=== PATIENT | female | born 1950 | race Caucasian/White ===

== ENCOUNTER 2021-04-14 16:37 | Emergency (ER) | payer BC, OTHER ==
[2021-04-14] MEDS ORDERED: Sodium Chloride 0.9% 10 ML Syringe FLUSH PRN (17:35)
--- NOTE | 2021-04-14 17:54 | EDM.PDOC ---
<Jamie Banegas Jasmina - Last Filed: 04/14/21 18:54> ED HPI GENERAL MEDICAL PROBLEM - General Chief Complaint: Gastrointestinal Problem Stated Complaint: BIODUCT PLUGGED AGAIN Time Seen by Provider: 04/14/21 17:49 Source of Information: Reports: Patient History Limitations: Reports: No Limitations - History of Present Illness INITIAL COMMENTS - FREE TEXT/NARRATIVE: 70 y/o F c/o chills and dark urine. Pt is concerned her bile duct is blocked off from her stage 4 pancreatic cancer. She states symptoms are similar to her November episode where her bile duct closed off. 2 nights ago pt developed intermittent chills but no fever and this morning she noticed her urine was very dark. Her GI doctor is Silvio Mcfarland in [place]. She reports no pain. Her appertites has also been very poor the last 2 days. Denies gifford, cp, db, abd pn, drugs, etoh. Onset: Gradual Duration: Day(s): - Related Data Allergies Allergy/AdvReac Type Severity Reaction Status Date / Time Calcium Channel Blocking Allergy Other Verified 11/17/17 12:37 Agent Dilt clonidine Allergy UNKNOWN Verified 12/07/20 14:58 enalaprilat [From Vasotec] Allergy Swollen Verified 11/17/17 12:37 Tongue gluten Allergy Other Verified 11/17/17 12:37 hydralazine Allergy SWELLING Verified 12/07/20 14:58 OF FACE, THROAT, LIPS OR TONGUE/ANGIOEDEMA losartan [From Cozaar] Allergy Swollen Verified 11/17/17 12:35 Tongue beta adrenergic blockers Allergy SWELLING Uncoded 12/07/20 14:58 OF FACE, THROAT, LIPS OR TONGUE/ANGIOEDEMA Past Medical History Oncologic (Cancer) History: Reports: Pancreatic - Past Surgical History GI Surgical History: Reports: Cholecystectomy Female Surgical History: Reports: Hysterectomy Musculoskeletal Surgical History: Reports: Arthroscopic Knee, Knee Replacement Social & Family History - Tobacco Use Tobacco Use Status *Q: Never Tobacco User Second Hand Smoke Exposure: No - Recreational Drug Use Recreational Drug Use: No ED ROS GENERAL - Review of Systems Review Of Systems: Comprehensive ROS is negative, except as noted in HPI. ED EXAM, GI/ABD - Physical Exam Exam: See Below Exam Limited By: No Limitations General Appearance: Alert Nose: Normal Inspection, Normal Mucosa, No Blood Throat/Mouth: Normal Inspection, Normal Lips, Normal Teeth, Normal Gums, Normal Oropharynx, Normal Voice, No Airway Compromise Head: Atraumatic, Normocephalic Neck: Supple, Non-Tender Respiratory/Chest: No Respiratory Distress, Lungs Clear Cardiovascular: Normal Peripheral Pulses, Regular Rate, Rhythm GI/Abdominal Exam: Soft, Non-Tender (Female) Exam: Deferred Rectal (Female) Exam: Deferred Back Exam: Normal Inspection, Full Range of Motion Extremities: Normal Inspection, Normal Range of Motion, Non-Tender, Normal Capillary Refill, No Pedal Edema Neurological: Alert, Oriented Psychiatric: Normal Affect, Normal Mood Skin Exam: Warm, Dry, Intact Course - Re-Assessments/Exams Free Text/Narrative Re-Assessment/Exam: 04/14/21 18:54 Care taken over by Shobha Chavez TANK CHARGER at shift change Departure - Departure Disposition: DC/Tfer to [facility] Clinical Impression: Common bile duct obstruction, Adenocarcinoma of pancreas, stage 4 - Discharge Information Forms: ED Department Discharge, Interfacility Transfer EMTALA <Shobha Chavez - Last Filed: 04/14/21 23:07> Course - Vital Signs Last Recorded V/S: Last Vital Signs Temp 98 F 04/14/21 17:18 Pulse 101 H 04/14/21 17:18 Resp 18 04/14/21 17:18 BP 151/109 H 04/14/21 17:18 Pulse Ox 97 04/14/21 17:18 - Orders/Labs/Meds Orders: Active Orders 24 hr Category Date Time Status Peripheral IV Care [RC] . DIRECTED Care 04/14/21 17:35 Active CULTURE URINE [RM] Stat Lab 04/14/21 18:43 Received Sodium Chloride 0.9% [Saline Flush] Med 04/14/21 17:35 Active 10 ml FLUSH ASDIRECTED PRN Peripheral IV Insertion Adult [OM.PC] Stat Oth 04/14/21 17:35 Ordered Medication Orders Sodium Chloride (Sodium Chloride 0.9% 10 Ml Syringe) 10 ml FLUSH ASDIRECTED PRN PRN Reason: Keep Vein Open Last Admin: 04/14/21 20:22 Dose: 10 ml Documented by: TAMI Labs: Laboratory Tests 04/14/21 04/14/21 04/14/21 Range/Units 17:43 17:43 18:43 WBC 10.4 H (5.0-10.0) 10^3/uL RBC 4.35 (4.2-5.4) 10^6/uL Hgb 13.0 (12.0-16.0) g/dL Hct 39.9 (37.0-47.0) % MCV 91.7 (80-100) fL MCH 29.9 (27.0-34.0) pg MCHC 32.6 L (33.0-35.0) g/dL Plt Count 177 (150-450) 10^3/uL Neut % (Auto) 79.7 H (42.2-75.2) % Lymph % (Auto) 12.2 L (20.5-50.1) % [place] % (Auto) 7.6 (2-8) % Eos % (Auto) 0.4 L (1.0-3.0) % Baso % (Auto) 0.1 (0.0-1.0) % Add Manual Diff Yes Neutrophils % (Manual) 63 (42-75) % Band Neutrophils % 17 % Lymphocytes % (Manual) 17 L (20-50) % Monocytes % (Manual) 2 (2-8) % Eosinophils % (Manual) 1 (1-3) % Sodium 137 (136-145) mmol/L Potassium 3.6 (3.5-5.1) mmol/L Chloride 101 (98-107) mmol/L Carbon Dioxide 25 (21-32) mmol/L Anion Gap 14.6 H (7-13) mEq/L BUN 10 (7-18) mg/dL Creatinine 0.86 (0.55-1.02) mg/dL Est Cr Clr Drug Dosing 51.06 mL/min Estimated GFR (MDRD) > 60 BUN/Creatinine Ratio 11.6 (No establ ref range) Glucose 110 H (70-99) mg/dL Calcium 8.4 L (8.5-10.1) mg/dL Total Bilirubin 4.0 H (0.2-1.0) mg/dL AST 341 H (15-37) U/L ALT 468 H (14-59) U/L Alkaline Phosphatase 484 H (46-116) U/L Total Protein 6.7 (6.4-8.2) g/dL Albumin 2.5 L (3.4-5.0) g/dL Globulin 4.2 Albumin/Globulin Ratio 0.60 Amylase 27 (25-115) U/L Lipase 55 L (73-393) U/L Urine Color Colette (YELLOW) Urine Appearance Slightly cloudy (CLEAR) Urine pH 6.0 (5.0-9.0) Ur Specific [place] 1.020 (1.005-1.030) Urine Protein Trace H (NEGATIVE) Urine Glucose (UA) Negative (NEGATIVE) Urine Ketones Negative (NEGATIVE) Urine Occult Blood Trace-intact H (NEGATIVE) Urine Nitrite Positive H (NEGATIVE) Urine Bilirubin Large H (NEGATIVE) Urine Urobilinogen 1.0 (0.2-1.0) mg/dL Ur Leukocyte Esterase Small H (NEGATIVE) Urine RBC 0-5 (0-5) /HPF Urine WBC 20-30 H (0-5/HPF) /HPF Ur Epithelial Cells Few (NOT SEEN) /HPF Urine Bacteria Many H (0-FEW/HPF) /HPF Meds: Medications Generic Name Dose Route Start Last Admin Trade Name Freq PRN Reason Stop Dose Admin Sodium Chloride 10 ml 04/14/21 17:35 04/14/21 20:22 Sodium Chloride 0.9% 10 Ml Syringe FLUSH 10 ml ASDIRECTED PRN Administration Keep Vein Open Discontinued Medications Generic Name Dose Route Start Last Admin Trade Name Freq PRN Reason Stop Dose Admin Cephalexin 500 mg 04/14/21 20:49 04/14/21 21:02 Cephalexin 500 Mg Cap PO 04/14/21 20:50 500 mg ONETIME ONE Administration Sodium Chloride 1,000 mls @ 999 mls/hr 04/14/21 20:04 04/14/21 20:23 Normal Saline IV 04/14/21 21:04 500 mls/hr .BOLUS ONE Infusion Piperacillin Sod/Tazobactam 100 mls @ 200 mls/hr 04/14/21 22:38 04/14/21 23:01 Sod 3.375 gm/ Sodium Chloride IV 04/14/21 23:07 200 mls/hr ONETIME ONE Administration Iopamidol 100 ml 04/14/21 19:19 04/14/21 19:59 Iopamidol 612 Mg/Ml 100 Ml Bottle IVPUSH 04/14/21 19:20 75 ml ONETIME ONE Administration - Radiology Interpretation Free Text/Narrative:: CT Abdomen/Pelvis with contrast: Moderate intrahepatic and extrahepatic ductal dilatation despite CBD stent. GI opinion is suggested. See rad report - Re-Assessments/Exams Free Text/Narrative Re-Assessment/Exam: 04/14/21 23:03 Discussed patient case with Dr. Montilla, GI specialist at [facility] who states the patient will need to have her stent replaced within the next 24 hours. He suggests the patient be transferred to [facility]. Dr. Lim, Hospitalist agreed and agreed to accept the patient for transfer to [facility] in [place]. Patient has signed refusal to transfer by ambulance. She requests to drive with her . Patient is aware of risks. She states she feels well enough to drive in the car. Departure - Departure Time of Disposition: 23:07 Condition: Fair - Discharge Information *PRESCRIPTION DRUG MONITORING PROGRAM REVIEWED*: No *COPY OF PRESCRIPTION DRUG MONITORING REPORT IN PATIENT GALLO: No Sepsis Event Note (ED) - Focused Exam Vital Signs: Vital Signs Temp Pulse Resp BP Pulse Ox 04/14/21 17:18 98 F 101 H 18 151/109 H 97
[2021-04-14 18:14] LABS: ANION GAP 14.6 mEq/L (7-13); CHLORIDE,CL 101 mmol/L (98-107); SODIUM,NA 137 mmol/L (136-145)
[2021-04-14] MEDS ORDERED: Iopamidol 612 MG/ML 100 ML Bottle IVPUSH ONE (19:19)
[2021-04-14] MEDS ORDERED: Sodium Chloride 0.9% 1,000 ML IV ONE (20:04)
--- NOTE | 2021-04-14 20:24 | CT ---
PROCEDURE INFORMATION: Exam: CT Abdomen And Pelvis With Contrast Exam date and time: 04/14/2021 7:41 PM Age: 70 years old Clinical indication: Other: Previous bile duct occlusion; Prior surgery; Surgery date: 6+ months; Surgery type: Cholecystectomy, hysterectomy; Patient HX: HX pancreatic CA, on chemo TECHNIQUE: Imaging protocol: Computed tomography of the abdomen and pelvis with contrast. Radiation optimization: All CT scans at this facility use at least one of these dose optimization techniques: automated exposure control; mA and/or kV adjustment per patient size (includes targeted exams where dose is matched to clinical indication); or iterative reconstruction. Contrast material: ISOVUE 300; Contrast volume: 75 ml; Contrast route: INTRAVENOUS (IV); COMPARISON: CT Abdomen Pelvis w wo Cont 12/08/2020 10:38 AM FINDINGS: Liver: Calcification again seen in the right hepatic lobe. Gallbladder and bile ducts: Gallbladder surgically absent. Moderate intra and extrahepatic ductal dilatation is seen. The common bile duct is enlarged measuring up to 25 mm. A CBD stent is present which appears to be in good position. Dilatation is similar to prior. Pancreas: There is hypodensity in the neck of the pancreas again seen that measures about 2 cm. Cystic neoplasm is in the differential. Per report, the patient has the history of pancreatic cancer. Pancreatic parenchymal atrophy seen. Moderate pancreatic ductal dilatation noted. The pancreatic duct measures up to 8 mm. Spleen: Normal. No splenomegaly. Adrenal glands: Normal. No mass. Kidneys and ureters: Normal. No hydronephrosis. Stomach and bowel: Unremarkable. No obstruction. No mucosal thickening. Appendix: No evidence of appendicitis. Intraperitoneal space: Unremarkable. No free air. No significant fluid collection. Vasculature: Coronary artery calcifications noted. Lymph nodes: Unremarkable. No enlarged lymph nodes. Urinary bladder: Unremarkable as visualized. Reproductive: Pessary noted. Bones/joints: Unremarkable. No acute fracture. Soft tissues: See "Pancreas" finding. Lung bases: Unchanged 4 mm nodule in the right base. IMPRESSION: Moderate intrahepatic and extrahepatic ductal dilatation despite CBD stent. GI opinion is suggested.
[2021-04-14] MEDS ORDERED: Cephalexin 500 MG Cap PO ONE (20:49)
[2021-04-14] MEDS ORDERED: Piperacillin/Tazobactam 3.375 GM in Sodium Chloride 0.9% 100 ML IV ONE (22:38)
== END 2021-04-14 23:35 ==
LOC: DL.ED 16:37
DX: K83.1 Obstruction of bile duct (principal); C25.9 Malignant neoplasm of pancreas, unspecified; Z88.8 Allergy status to other drugs, medicaments and biological substances; Z91.018 Allergy to other foods; Z90.49 Acquired absence of other specified parts of digestive tract
CPT/HCPCS: 36415; 74177; 80053; 81001; 82150; 83690; 85025; 87086; 87088; 87186; 96365; 99285; A9270; J2543; J7030; Q9967